=== PATIENT | male | born 1950 | race Two or more races ===

== ENCOUNTER 2022-05-21 08:45 | Inpatient (IN) | payer OTHER ==
[~2022-05-21] VITALS: Ht 167.6 cm; Wt 64.9 kg
[~2022-05-21 08:45] MED LIST: ATORVASTATIN CA10 MG; FOLIC ACID0.8 M1 PO; GABAPENTIN400 MG PO; GLIPIZIDE XL10 MG PO; NEURONTIN300 MG PO; OMEPRAZOLE20 MG; ST. JOSEPH ASPI81 M2; VABYSMO6 MG/0.05; ZESTRIL2.5 MG PO
[2022-05-21] MEDS ORDERED: ZESTRIL2.5 MG PO (10:36)
[2022-05-24] MEDS ORDERED: GLIPIZIDE10 MG (10:33)
[2022-05-24] MEDS ORDERED: ATORVASTATIN CA10 MG (10:33)
[2022-05-24] MEDS ORDERED: ST. JOSEPH ASPI81 M2 (14:44)
[2022-05-24] MEDS ORDERED: OMEPRAZOLE20 MG (14:45)
== END 2022-05-27 17:37 | disposition home or self-care (01) | DRG 348 ==
LOC: SURH 05-24 07:00 → O/R 05-24 08:46 → SURH 05-24 08:46
PROVIDERS: ADMIT Surgery; ATTEND Surgery
PROC: 0DBB4ZZ Excision of Ileum, Percutaneous Endoscopic Approach (ICD-10-PCS; principal; 2022-05-24 07:00)
DX: Z43.2 Encounter for attention to ileostomy (principal); C20 Malignant neoplasm of rectum; K62.5 Hemorrhage of anus and rectum; K59.09 Other constipation; Z20.822 Contact with and (suspected) exposure to COVID-19

== ENCOUNTER 2023-05-20 15:16 | Emergency (ER) | payer OTHER ==
[~2023-05-20] VITALS: Ht 162.6 cm; Wt 65.8 kg
[~2023-05-20 15:16] MED LIST changes: +GLIPIZIDE10 MG
[2023-05-20] MEDS ORDERED: 0.9 % SODIUM CHLORIDE 1,000 ML IV SCH (17:30)
[2023-05-20 17:50] LABS: HEMATOCRIT 42.1 % (39.0-48.0); HEMOGLOBIN 14.2 g/dL (13-16.00); MEAN CELL VOLUME 79.4 fL (80.0-100.00); MEAN CORPUSCULAR HEMOGLOBIN 26.7 pg (27.00-32.0); MEAN CORPUSCULAR HGB CONC 33.6 g/dl (32.0-36.0); PLATELET COUNT 203 K/uL (150-450); RED CELL DISTRIBUTION WIDTH 13.9 % (11.5-14.5)
[2023-05-20 18:14] LABS: CALCIUM 10.4 mg/dL (8.5-10.1); CREATININE SERUM 1.28 mg/dL (0.70-1.30); GFR 54.94; POTASSIUM 4.7 mEq/L (3.5-5.1)
[2023-05-20 18:59] LABS: PH,URINE 5.5 (5.0-8.0); URINE APPEARANCE Clear; URINE BILIRRUBIN Negative (NEGATIVE); URINE BLOOD Negative; URINE COLOR Yellow; URINE LEUKOCYTE Negative; URINE NITRATE Negative; URINE PROTEIN Negative (NEGATIVE); URINE UROBILINOGEN 0.2 E.U./dl
[2023-05-20 19:02] LABS: URINE BACTERIA 28.9 uL (0.0-1933); URINE EPITHELIAL CELLS 3.3 uL (0.0-38.8); URINE RBC 5.6 uL (0.0-20.8); URINE WBC 4.7 uL (0.0-23.2)
[2023-05-20 19:04] LABS: URINE GLUCOSE >=1000 MG/DL (NEGATIVE)
== END 2023-05-20 22:22 | disposition home or self-care (01) ==
LOC: ER 15:16
PROVIDERS: Emergency Medicine
DX: R10.9 Unspecified abdominal pain (principal); I10 Essential (primary) hypertension; E11.9 Type 2 diabetes mellitus without complications
CPT/HCPCS: 36415; 74177; 96365; 96366; 99284; J7030; Q9965